=== PATIENT | female | born 1995 | race Caucasian/White ===

== ENCOUNTER 2017-11-30 09:23 | Emergency (ER) | payer BC, OTHER ==
[~2017-11-30] VITALS: Ht 165.1 cm; Wt 56.7 kg
[2017-11-30 09:53] LABS: ABSOLUTE NEUTROPHILS 3.7 thou/uL (1.4-8.2); BASOPHILS 0.9 % (0.0-2.0); EOSINOPHILS 3.3 % (0.0-3.0); HEMATOCRIT 38.6 % (37.0-47.0); HEMOGLOBIN 13.3 gm/dL (12.0-15.0); LYMPHOCYTES 49.6 % (24.0-44.0); MCH 31.2 pg (26.0-34.0); MCHC 34.4 g/dL (28.0-37.0); MCV 90.8 fL (80.0-100.0); MONOCYTES 6.2 % (1.0-8.0); PLATELET COUNT 317 thou/uL (150-400); RBC 4.25 mil/uL (4.20-5.00); RDW 12.5 % (10.5-14.5); WBC 9.3 thou/uL (4.0-11.0)
[2017-11-30 09:59] LABS: CALCIUM 9.3 mg/dL (8.5-10.1); POTASSIUM 3.3 mmol/L (3.5-5.1)
[2017-11-30 10:05] LABS: ALBUMIN 3.7 g/dL (3.4-5.0); DIRECT BILIRUBIN 0.1 mg/dL (<0.1-0.3); TOTAL BILIRUBIN 0.4 mg/dL (<0.1-1.0); TOTAL PROTEIN 6.8 g/dL (6.4-8.2)
[2017-11-30 11:33] LABS: URINE BILIRUBIN NEGATIVE (Negative); URINE BLOOD NEGATIVE (Negative); URINE CLARITY CLEAR; URINE COLOR YELLOW; URINE GLUCOSE-RANDOM* TRACE (Negative); URINE KETONES NEGATIVE (Negative); URINE LEUKOCYTES NEGATIVE (Negative); URINE NITRITE NEGATIVE (Negative); URINE PROTEIN (DIPSTICK) NEGATIVE (Negative); URINE UROBILINOGEN 0.2 E.U./dl (0.2-1.0)
[2017-11-30] MEDS ORDERED: IBUPROFEN 600600 M1 PO (11:57)
[2017-11-30] MEDS ORDERED: FLOMAX0.4 MG PO (11:57)
[2017-11-30] MEDS ORDERED: NORCO 5-325 TA1 EACH PO (11:57)
[2017-11-30] MEDS ORDERED: ONDANSETRON HCL4 M2 PO (11:57)
== END 2017-11-30 12:25 | disposition home or self-care (01) ==
LOC: ER 09:23
PROVIDERS: Nurse Practitioner
DX: N20.0 Calculus of kidney (principal)